=== PATIENT | female | born 1960 ===

== ENCOUNTER 2017-01-14 17:39 | Emergency (ER) | payer MEDICAID, OTHER ==
[2017-01-14 17:51] VITALS: BMI 27.3
[2017-01-14] MEDS ORDERED: DiphenhydrAMINE 50 mg/ml Inj ONE (18:03)
[2017-01-14] MEDS ORDERED: Sodium Chloride 0.9% 1,000 ML IV ONE (18:04)
[2017-01-14] MEDS ORDERED: DiphenhydrAMINE 50 mg/ml Inj IVP STA (18:08)
--- NOTE | 2017-01-14 18:09 | C.PDOC ---
History Of Present Illness 56 year old female presents to the ED with complaints of shortness of breath and wheezing that has been worsening over the course of one week with upper lip swelling. Patient has been nonconsistent with nebulizer breathing treatment at home. She also notes she has only had water and an orange at 6pm today to eat. Patient denies any chest pain, nausea, or vomiting. Time Seen by Provider: 01/14/17 18:04 Chief Complaint (Nursing): Allergic Reaction History Per: Patient History/Exam Limitations: no limitations Onset/Duration Of Symptoms: Days Current Symptoms Are (Timing): Worse Associated Symptoms: Swelling (lip swelling). denies: Skin Rash Home/EMS Treatment: Other (nebulizer breathing treatment, but pt is inconsistent with usage. ) Past Medical History Reviewed: Historical Data, Nursing Documentation, Vital Signs Vital Signs: Last Vital Signs Temp 98.1 F 01/14/17 20:06 Pulse 80 01/14/17 20:06 Resp 18 01/14/17 20:06 BP 163/93 H 01/14/17 20:06 Pulse Ox 99 01/14/17 23:41 - Medical History PMH: Rheumatoid Arthritis Family History: States: No Known Family Hx - Social History Hx Alcohol Use: No Hx Substance Use: No - Immunization History Hx Tetanus Toxoid Vaccination: No Hx Influenza Vaccination: No Hx Pneumococcal Vaccination: No Review Of Systems Constitutional: Negative for: Fever, Chills, Sweats Cardiovascular: Negative for: Chest Pain Respiratory: Positive for: Shortness of Breath, Wheezing Gastrointestinal: Negative for: Nausea, Vomiting, Abdominal Pain, Diarrhea Skin: Positive for: Other (lip swelling ). Negative for: Rash, Lesions Physical Exam - Physical Exam Appears: Non-toxic, No Acute Distress Skin: Warm, Dry Head: No Swelling Oral Mucosa: Moist, Other (normal oral pharyngeal ) Tongue: Normal Appearing, No Swelling Lips: Swelling (upper lip ) Throat: Normal, No Erythema, No Exudate, No Drooling Neck: Normal ROM, Supple Cardiovascular: Rhythm Regular Respiratory: No Rales, Rhonchi (scattered), No Stridor, Wheezing, Other ( moderate air movement ) Gastrointestinal/Abdominal: Soft, No Tenderness, No Distention, No Guarding, No Rebound Extremity: Normal ROM, No Tenderness Neurological/Psych: Oriented x3 ED Course And Treatment - Laboratory Results Result Diagrams: 01/14/17 18:53 01/14/17 18:53 Lab Interpretation: Normal (trop neg.) ECG: Interpreted By Me ECG Rhythm: Sinus Rhythm ECG Interpretation: Normal Rate From EC O2 Sat by Pulse Oximetry: 99 - Radiology CXR: Interpreted by Me CXR Interpretation: Yes: No Acute Disease Reevaluation Time: 19:40 Reassessment Condition: Improved (lungs much improved, only minor wheezing.) Critical Care Time - Critical Care Note Total Time (in mins): 90 Documented critical care: time excludes all time spent performing seperately billable procedures. Medical Decision Making Medical Decision Making: Asthma exacerbation worstening over past week- pt tending to her sick father so away from her neb machine. no aerochamber spacer w MDI Upper lip swelling may be allergic vs incidental Disposition Doctor Will See Patient In The: Office Counseled Patient/Family Regarding: Studies Performed, Diagnosis - Disposition Referrals: Paco Womack MD [Staff Provider] - Disposition: HOME/ ROUTINE Disposition Time: 19:42 Condition: GOOD Additional Instructions: Duoneb inhaled treatments with TWO ampules of Duoneb (liquids) every 3-4 hours as needed Prednisone 40 mg daily for 4 more days Pepcid 20 mg @ night to prevent stomach irritation from the prednisone Always use your albuterol puffer with the Aerochamber Spacer- makes it work more effectively. Follow-up with your doctor in 1-2 days for re-evaluation. Prescriptions: Spacer, Inhalation [Aerochamber] 1 dev IH DAILY #1 dev Prednisone [Deltasone] 40 mg PO DAILY #8 tablet Albuterol/Ipratropium [Duoneb 3 MG/3 Ml-0.5 MG/3 Ml 3 Ml] 6 ml IH Q4H #100 neb Instructions: Asthma (ED), Urticaria (ED), General Allergic Reaction (ED) - Clinical Impression Clinical Impression: Acute allergic reaction, Exacerbation of asthma - Scribe Statement The provider has reviewed the documentation as recorded by the Scribe Areli Nicolas All medical record entries made by the Scribe were at my direction and personally dictated by me. I have reviewed the chart and agree that the record accurately reflects my personal performance of the history, physical exam, medical decision making, and the department course for this patient. I have also personally directed, reviewed, and agree with the discharge instructions and disposition.
[2017-01-14] MEDS ORDERED: Albuterol-Ipratrop 3 mg / 0.5 (3 ml) UD ONE (18:18)
--- NOTE | 2017-01-14 18:42 | RAD ---
PROCEDURE: CHEST RADIOGRAPH, 1 VIEW HISTORY: Shortness of breath COMPARISON: None available. FINDINGS: LUNGS: The lungs are well inflated and clear. PLEURA: No pneumothorax or pleural fluid seen. CARDIOVASCULAR: Normal. OSSEOUS STRUCTURES: No significant abnormalities. VISUALIZED UPPER ABDOMEN: Normal. OTHER FINDINGS: None. IMPRESSION: No active pulmonary disease.
[2017-01-14] MEDS ORDERED: Albuterol-Ipratrop 3 mg / 0.5 (3 ml) UD INH STA (18:45)
[2017-01-14 19:01] LABS: BASO % 0.7 % (0.0-2.0); EOS # 0.2 K/uL (0.0-0.7); EOS % 2.4 % (0.0-4.0); LYMPH # 3.8 K/uL (1.0-4.3); LYMPH % 50.3 % (20.0-40.0); MEAN CELL VOLUME 85.9 fL (81.0-99.0); MEAN CORPUSCULAR HEMOGLOBIN 27.1 pg (27.0-31.0); MEAN CORPUSCULAR HGB CONC 31.5 g/dL (33.0-37.0); MEAN PLATELET VOLUME 7.5 fL (7.2-11.7); MONO # 0.5 K/uL (0.0-0.8); MONO % 6.7 % (0.0-10.0); WHITE BLOOD COUNT 7.6 K/uL (4.8-10.8)
[2017-01-14 19:09] LABS: CHLORIDE 105 mmol/L (98-107); POTASSIUM 3.7 mmol/L (3.6-5.2); SODIUM 140 mmol/L (132-148)
[2017-01-14 19:12] LABS: ALB/GLOB RATIO 1.1 (1.0-2.1); ALKALINE PHOSPHATASE 96 U/L (38-126); ALT/SGPT 20 U/L (9-52); AST/SGOT 24 U/L (14-36); BILIRUBIN,TOTAL 0.3 mg/dL (0.2-1.3); BLOOD UREA NITROGEN 15 mg/dL (7-17); CALCIUM 8.1 mg/dl (8.6-10.4); CARBON DIOXIDE 24 mmol/L (22-30); GFR AFRICAN-AMERICAN > 60; GLUCOSE,RANDOM 96 mg/dL (65-105); TOTAL PROTEIN 7.6 g/dL (6.3-8.3)
[2017-01-14 20:07] VITALS: BP 163/93; PULSE 80; RESP 18; TEMP 98.1
[2017-01-14 23:37] VITALS: O2SAT 99
--- NOTE | 2017-01-17 12:03 | CARD ---
APPROVED REPORT EKG Measurement Heart [id number] <Conclusion> Normal sinus rhythm Moderate voltage criteria for LVH, may be normal variant Borderline ECG
== END 2017-01-14 20:09 | disposition home or self-care (01) ==
LOC: C.ER 17:39
DX: J45.901 Unspecified asthma with (acute) exacerbation (principal); T78.40XA Allergy, unspecified, initial encounter; X58.XXXA Exposure to other specified factors, initial encounter
CPT/HCPCS: 71010; 80053; 83880; 84484; 85025; 93005; 94640; 96361; 96374; 96375; 99284; J1200; J2930; J7040

== ENCOUNTER 2017-01-25 20:33 | Emergency (ER) | payer OTHER ==
[2017-01-25 20:33] VITALS: BMI 27.3
[2017-01-25] MEDS ORDERED: Sodium Chloride 0.9% 1,000 ML IV ONE (20:42)
[2017-01-25] MEDS ORDERED: DiphenhydrAMINE 50 mg/ml Inj IVP STA (20:42)
[2017-01-25] MEDS ORDERED: Albuterol-Ipratrop 3 mg / 0.5 (3 ml) UD ONE (20:42)
[2017-01-25] MEDS ORDERED: Albuterol-Ipratrop 3 mg / 0.5 (3 ml) UD IH STA (20:43)
[2017-01-25] MEDS ORDERED: DiphenhydrAMINE 50 mg/ml Inj ONE (20:45)
--- NOTE | 2017-01-25 21:10 | C.PDOC ---
Time Seen by Provider: 01/25/17 20:42 Chief Complaint (Nursing): Allergic Reaction History Per: Patient, Family Onset/Duration Of Symptoms: Hrs (1) Current Symptoms Are (Timing): Still Present Context: Food Possible Cause: Food (Coconut) Associated Symptoms: Skin Rash, Dyspnea, Itching Home/EMS Treatment: Benadryl Severity: Moderate Additional History Per: Prior Records Past Medical History Reviewed: Historical Data, Nursing Documentation, Vital Signs Vital Signs: Last Vital Signs Temp 98.2 F 01/25/17 20:42 Pulse 67 01/25/17 20:42 Resp 20 01/25/17 20:42 BP 177/85 H 01/25/17 20:42 Pulse Ox 100 01/25/17 21:10 - Medical History PMH: Asthma, Rheumatoid Arthritis Surgical History: No Surg Hx Family History: States: Unknown Family Hx - Social History Hx Tobacco Use: No Hx Alcohol Use: No Hx Substance Use: No - Immunization History Hx Tetanus Toxoid Vaccination: No Hx Influenza Vaccination: No Hx Pneumococcal Vaccination: No Review Of Systems Except As Marked, All Systems Reviewed And Found Negative. Constitutional: Negative for: Fever, Weakness Cardiovascular: Negative for: Chest Pain Respiratory: Positive for: Wheezing Gastrointestinal: Negative for: Vomiting, Abdominal Pain Musculoskeletal: Negative for: Neck Pain Skin: Positive for: Rash Neurological: Negative for: Weakness, Numbness, Seizures, Altered Mental Status Physical Exam - Physical Exam Appears: In Acute Distress (mild) Skin: Warm, Dry, Rash (Urticaria) Head: Atraumatic, Normacephalic Eye(s): bilateral: PERRL, EOMI Oral Mucosa: Moist, No Drooling, No Trismus Throat: No Exudate, No Drooling, No Mass Neck: Normal ROM, Supple Cardiovascular: Rhythm Regular Respiratory: No Accessory Muscle Use, Wheezing Gastrointestinal/Abdominal: Soft, No Tenderness Extremity: Normal ROM, No Pedal Edema Neurological/Psych: Oriented x3, Normal Speech, Normal Motor, Normal Sensation ED Course And Treatment O2 Sat by Pulse Oximetry: 100 Pulse Ox Interpretation: Normal Progress Note: Pt feels much better and wants to go home now. Lungs clear. Pt is asymptomatic. Reevaluation Time: 22:10 Reassessment Condition: Improved Progress - Interventions Interventions:: Observation, Intravenous fluid - Medications Administered Intravenous: Antihistamine (H-1), Corticosteroid, H-2 joshua - Data Reviewed Data Reviewed: Old records - Patient Status Patient status: Completely improved - Critical Care Citical Care: Excluding Proc Time Critical Care Time: 45 minutes - Continuity of Care Discussed patient case with:: Patient, Family-HIPPA compliant, ED Nurse - Patient Plan Patient Plan: Discharge, F/U with PCP Disposition Counseled Patient/Family Regarding: Diagnosis, Need For Followup, Rx Given - Disposition Referrals: Paco Womack MD [Staff Provider] - Disposition: HOME/ ROUTINE Disposition Time: 22:10 Condition: IMPROVED Additional Instructions: Follow up with your doctor. Take Benadryl as needed. Return to the ER if you develop throat swelling, trouble breathing, worsening of symptoms or if you have any other concerns. Prescriptions: Epinephrine [Epipen] 0.3 mg IJ ONCE PRN #1 auto.injct PRN Reason: Anaphylaxis predniSONE [predniSONE Tab] 2 mg PO DAILY #6 tab Instructions: Food Allergy (ED) - Clinical Impression Clinical Impression: Allergic reaction to food
[2017-01-25 22:30] VITALS: BP 176/92; PULSE 79; RESP 16; TEMP 98.4; O2SAT 99
== END 2017-01-25 22:30 | disposition home or self-care (01) ==
LOC: C.ER 20:33
DX: T78.1XXA Other adverse food reactions, not elsewhere classified, initial encounter (principal)
CPT/HCPCS: 96361; 96374; 96375; 99284; J1200; J2930; J7040

== ENCOUNTER 2018-05-05 20:51 | Emergency (ER) | payer MEDICAID ==
[2018-05-05 20:51] VITALS: BMI 27.3
[2018-05-05] MEDS ORDERED: Sodium Chloride 0.9% 1,000 ML IV ONE (22:21)
--- NOTE | 2018-05-05 22:21 | C.PDOC ---
History Of Present Illness 57 year old female presents to the emergency department with complaints of three to four hours of right upper quadrant abdominal pain. She reports some nausea with no vomiting, and qualifies her pain as sharp and stabbing with a severity of 5/10. Time Seen by Provider: 05/05/18 22:20 Chief Complaint (Nursing): Abdominal Pain History Per: Patient History/Exam Limitations: no limitations Onset/Duration Of Symptoms: Hrs (3-4) Current Symptoms Are (Timing): Still Present Severity: Moderate Pain Scale Rating Of: 5 Location Of Pain/Discomfort: RUQ Quality Of Discomfort: Sharp, Stabbing, "Pain" Associated Symptoms: Nausea. denies: Vomiting Past Medical History Reviewed: Historical Data, Nursing Documentation, Vital Signs Vital Signs: Last Vital Signs Temp 98.9 F 05/05/18 21:33 Pulse 93 H 05/05/18 21:33 Resp 18 05/05/18 21:33 BP 152/70 H 05/06/18 00:32 Pulse Ox 96 05/06/18 00:15 - Medical History PMH: Asthma, Depression, HTN, Hypothyroidism, Rheumatoid Arthritis Surgical History: No Surg Hx Family History: States: No Known Family Hx - Social History Hx Tobacco Use: No Hx Alcohol Use: No Hx Substance Use: No - Immunization History Hx Tetanus Toxoid Vaccination: No Hx Influenza Vaccination: No Hx Pneumococcal Vaccination: No Review Of Systems Gastrointestinal: Positive for: Nausea, Abdominal Pain (RUQ). Negative for: Vomiting (RUQ) Physical Exam - Physical Exam Appears: Non-toxic, No Acute Distress Skin: Warm, Dry Head: Normacephalic Eye(s): bilateral: Normal Inspection Oral Mucosa: Dry Neck: Trachea Midline, Supple Chest: Symmetrical, No Tenderness Cardiovascular: Rhythm Regular, No Murmur Respiratory: No Rales, No Rhonchi, No Wheezing Gastrointestinal/Abdominal: Soft, Tenderness (RUQ ), Distention, Guarding ( voluntary), No Rebound Extremity: Bilateral: Normal Color And Temperature Pulses: Left Dorsalis Pedis: Normal, Right Dorsalis Pedis: Normal Neurological/Psych: Oriented x3 ED Course And Treatment - Laboratory Results Result Diagrams: 05/05/18 22:39 05/05/18 22:39 ECG: Interpreted By Me, Viewed By Me ECG Rhythm: Sinus Rhythm (56), Nonspecific Changes (lvh) O2 Sat by Pulse Oximetry: 96 (RA) Pulse Ox Interpretation: Normal Progress Note: Plan: CT Abdomen and Pelvis IV Contrast. EKG. CMP. Lipase. CBC. PTT. Prothrombin Time. Morphine 2mg IVP. Pepcid 20mg IVP. NaCl IV Fluids. Toradol 30mg IVP. Zofran 4mg IVP. Urinalysis Reevaluation Time: 01:16 Reassessment Condition: Improved Medical Decision Making Medical Decision Making: Upon provider reevaluation patient is feeling better, is medically stable, and requires no further treatment in the ED at this time. Patient will be discharged home with Rx for flagyl and miralax . Counseling was provided and all questions were answered regarding diagnosis and need for follow up with dr garcia. There is agreement to discharge plan. Return if symptoms persist or worsen. Disposition Counseled Patient/Family Regarding: Studies Performed, Diagnosis, Need For Followup, Rx Given - Disposition Referrals: Shaik Garcia MD [Staff Provider] - Disposition: HOME/ ROUTINE Disposition Time: 22:21 Condition: FAIR Additional Instructions: Please return if symptoms recur Prescriptions: Metronidazole [Flagyl] 500 mg PO TID #21 tablet Polyethylene Glycol 3350 [Miralax] 17 gm PO DAILY #270 ml Instructions: Acute Abdomen (Belly Pain), Adult (DC), Gallstones, Colic (DC), Constipation, Adult (DC) Forms: [facility] (Upper Sorbian) - Clinical Impression Clinical Impression: Abdominal pain, Biliary colic, Constipation - Scribe Statement The provider has reviewed the documentation as recorded by the Scribe (Lazaro Lugo) Provider Attestation: All medical record entries made by the Scribe were at my direction and personally dictated by me. I have reviewed the chart and agree that the record accurately reflects my personal performance of the history, physical exam, medical decision making, and the department course for this patient. I have also personally directed, reviewed, and agree with the discharge instructions and disposition.
[2018-05-05 22:48] LABS: BASO # 0.1 K/uL (0.0-0.2); BASO % 1.3 % (0.0-2.0); EOS # 0.3 K/uL (0.0-0.7); EOS % 3.2 % (0.0-4.0); HEMOGLOBIN 11.2 g/dL (11.0-16.0); LYMPH % 48.9 % (20.0-40.0); MEAN CELL VOLUME 83.1 fL (81.0-99.0); MEAN CORPUSCULAR HEMOGLOBIN 27.7 pg (27.0-31.0); MEAN CORPUSCULAR HGB CONC 33.3 g/dL (33.0-37.0); MEAN PLATELET VOLUME 7.6 fL (7.2-11.7); MONO # 0.5 K/uL (0.0-0.8); MONO % 5.9 % (0.0-10.0); NEUT # 3.3 K/uL (1.8-7.0); NEUT % 40.7 % (50.0-75.0); NRBC % 0.1 % (0.0-2.0); RBC 4.06 Mil/uL (3.80-5.20); RED CELL DISTRIBUTION WIDTH 14.9 % (11.5-14.5); WHITE BLOOD COUNT 8.2 K/uL (4.8-10.8)
[2018-05-05 22:56] LABS: CALCIUM 9.2 mg/dl (8.6-10.4); GFR AFRICAN-AMERICAN > 60; GFR NON-AFRICAN AMERICAN > 60; LIPASE 136 U/L (23-300)
[2018-05-05 23:03] LABS: SQUAMOUS EPITHIAL 4 /hpf (0-5); URINE BACTERIA OCC (<OCC); URINE BILIRUBIN NEGATIVE (NEGATIVE); URINE BLOOD NEGATIVE (NEGATIVE); URINE CLARITY Clear (Clear); URINE COLOR Yellow (YELLOW); URINE GLUCOSE (UA) NORMAL (Normal); URINE LEUKOCYTE ESTERASE 1+ Leu/uL (Negative); URINE PROTEIN NEGATIVE (NEGATIVE)
[2018-05-05 23:03] LABS: ALB/GLOB RATIO 1.1 (1.0-2.1); ALBUMIN 4.5 g/dL (3.5-5.0); ALT/SGPT 19 U/L (9-52); AST/SGOT 39 U/L (14-36); BLOOD UREA NITROGEN 15 mg/dL (7-17)
[2018-05-05 23:05] LABS: INR 0.9; PROTHROMBIN TIME 9.9 SECONDS (9.7-12.2)
[2018-05-05] MEDS ORDERED: Iohexol 350mg/ml 100 ML ONE (23:19)
[2018-05-06 01:48] VITALS: BP 144/77; PULSE 61; RESP 20; TEMP 98.3; O2SAT 97
--- NOTE | 2018-05-06 18:05 | CT ---
Date of service: 05/05/2018 PROCEDURE: CT Abdomen and Pelvis without intravenous contrast HISTORY: abd pain COMPARISON: None. TECHNIQUE: Axial and reformatted coronal and sagittal CT images of the abdomen and pelvis were obtained without IV or oral contrast administration.. Contrast dose: 0 Radiation dose: Total exam DLP = 534.56 mGy-cm. This CT exam was performed using one or more of the following dose reduction techniques: Automated exposure control, adjustment of the mA and/or kV according to patient size, and/or use of iterative reconstruction technique. FINDINGS: LOWER THORAX: Mild dependent atelectasis noted. LIVER: Unremarkable. No gross lesion or ductal dilatation. GALLBLADDER AND BILE DUCTS: Distended gallbladder without definite CT evidence of acute cholecystitis. PANCREAS: Unremarkable. No gross lesion or ductal dilatation. SPLEEN: Unremarkable. ADRENALS: Unremarkable. No mass. KIDNEYS AND URETERS: No evidence of nephrolithiasis or hydronephrosis. VASCULATURE: Unremarkable. No aortic aneurysm. BOWEL: Mild constipation is noted. Colonic diverticulosis are seen without evidence of diverticulitis. No evidence of high-grade bowel obstruction. APPENDIX: Unremarkable. Normal appendix. PERITONEUM: Unremarkable. No free fluid. No free air. LYMPH NODES: Unremarkable. No enlarged lymph nodes. BLADDER: Unremarkable. REPRODUCTIVE: Unremarkable. BONES: No acute fracture. OTHER FINDINGS: None. IMPRESSION: Distended gallbladder without evidence of acute cholecystitis. Colonic diverticulosis without evidence of diverticulitis. Mild constipation. Preliminary report was submitted by [facility].
== END 2018-05-06 02:07 | disposition home or self-care (01) ==
LOC: C.ER 20:51
DX: R10.11 Right upper quadrant pain (principal); K59.00 Constipation, unspecified; K80.50 Calculus of bile duct without cholangitis or cholecystitis without obstruction; I10 Essential (primary) hypertension; E03.9 Hypothyroidism, unspecified; M06.9 Rheumatoid arthritis, unspecified
CPT/HCPCS: 74176; 80053; 81001; 83690; 85025; 85610; 85730; 96374; 96375; 99285; J1885; J2270; J2405; J7030

== ENCOUNTER 2018-08-22 18:31 | Emergency (ER) | payer MEDICAID, OTHER ==
[2018-08-22 18:32] VITALS: BMI 27.3
[2018-08-22] MEDS ORDERED: Sodium Chloride 0.9% 1,000 ML IV ONE (18:55)
[2018-08-22] MEDS ORDERED: Albuterol-Ipratrop 3 mg / 0.5 (3 ml) UD IH STA (18:57)
[2018-08-22] MEDS ORDERED: Albuterol-Ipratrop 3 mg / 0.5 (3 ml) UD ONE ×2 (18:58→19:16)
[2018-08-22] MEDS ORDERED: Albuterol-Ipratrop 3 mg / 0.5 (3 ml) UD INH STA ×2 (19:10→19:11)
[2018-08-22 19:19] LABS: BASO % 1.5 % (0.0-2.0); EOS # 0.1 K/uL (0.0-0.7); EOS % 4.2 % (0.0-4.0); HEMOGLOBIN 11.3 g/dL (11.0-16.0); LYMPH # 1.4 K/uL (1.0-4.3); LYMPH % 46.1 % (20.0-40.0); MEAN CELL VOLUME 82.4 fL (81.0-99.0); MEAN CORPUSCULAR HEMOGLOBIN 26.5 pg (27.0-31.0); MEAN CORPUSCULAR HGB CONC 32.2 g/dL (33.0-37.0); MONO # 0.4 K/uL (0.0-0.8); MONO % 13.7 % (0.0-10.0); NEUT # 1.1 K/uL (1.8-7.0); NEUT % 34.5 % (50.0-75.0); NRBC % 0.1 % (0.0-2.0); RBC 4.27 Mil/uL (3.80-5.20); RED CELL DISTRIBUTION WIDTH 15.7 % (11.5-14.5)
[2018-08-22 19:24] LABS: WHITE BLOOD COUNT 3.1 K/uL (4.8-10.8)
[2018-08-22 19:31] LABS: BLOOD UREA NITROGEN 11 mg/dL (7-17); CALCIUM 8.7 mg/dl (8.6-10.4); GFR NON-AFRICAN AMERICAN > 60
[2018-08-22 20:05] LABS: SQUAMOUS EPITHIAL 4 /hpf (0-5); URINE BACTERIA RARE (<OCC); URINE BILIRUBIN NEGATIVE (NEGATIVE); URINE BLOOD NEGATIVE (NEGATIVE); URINE CLARITY Hazy (Clear); URINE COLOR Yellow (YELLOW); URINE GLUCOSE (UA) NORMAL (Normal); URINE LEUKOCYTE ESTERASE NEG Leu/uL (Negative); URINE PROTEIN NEGATIVE (NEGATIVE); URINE UROBILINOGEN NORMAL mg/dL (0.2-1.0)
--- NOTE | 2018-08-22 20:06 | C.PDOC ---
History Of Present Illness 57 yo female w/PMHx of COPD comes in for evaluation of cold sx for past month. Pt reports, developed nasal congestion, runny nose, productive cough with clear sputum month ago, was seen by PMD, received Rx: Z-pack, Medrol-pack, cough syrup with minimal improvement in sx. Pt reports, week ago, developed dry cough again with some chest tightness with cough. Otherwise, pt denies fever, chills, drooling, dysphagia, neck pain, CP, palpitation, diaphoreiss, dyspnea, abd. pain, V/D, back pain, UTI sx, denies recent travel or known sick contact. Time Seen by Provider: 08/22/18 18:50 Chief Complaint (Nursing): Flu-like Symptoms History Per: Patient Onset/Duration Of Symptoms: Gradual Past Medical History Reviewed: Historical Data, Nursing Documentation, Vital Signs Vital Signs: Last Vital Signs Temp 98.3 F 08/22/18 18:41 Pulse 76 08/22/18 18:41 Resp 18 08/22/18 18:41 BP 138/93 H 08/22/18 18:41 Pulse Ox 95 08/22/18 18:41 - Medical History PMH: Asthma, Depression, HTN, Hypothyroidism, Rheumatoid Arthritis Family History: States: Unknown Family Hx - Social History Hx Tobacco Use: Yes (quit 3 yrs ago) Hx Alcohol Use: No Hx Substance Use: No - Immunization History Hx Tetanus Toxoid Vaccination: No Hx Influenza Vaccination: No Hx Pneumococcal Vaccination: No Review Of Systems Except As Marked, All Systems Reviewed And Found Negative. Constitutional: Positive for: Malaise Eyes: Negative for: Vision Change ENT: Positive for: Nose Discharge, Nose Congestion, Throat Pain Cardiovascular: Negative for: Chest Pain, Palpitations, Edema, Light Headedness Respiratory: Positive for: Cough, Wheezing. Negative for: Shortness of Breath, Pleuritic Pain Gastrointestinal: Negative for: Nausea, Vomiting, Abdominal Pain, Diarrhea Genitourinary: Negative for: Dysuria Musculoskeletal: Negative for: Neck Pain, Back Pain Skin: Negative for: Rash Neurological: Negative for: Altered Mental Status, Headache, Dizziness Physical Exam - Physical Exam Appears: Well, Non-toxic, No Acute Distress Skin: Normal Color, Warm, Dry, No Rash Head: Normacephalic Eye(s): bilateral: PERRL Ear(s): Bilateral: Normal Nose: No Flaring, Discharge (B/L congestion with scant clear rhinorrhea) Oral Mucosa: Moist, No Drooling Throat: Erythema (mild B/L), No Exudate, No Drooling Neck: Trachea Midline, Supple Cardiovascular: Rhythm Regular, No Murmur, No JVD Respiratory: No Decreased Breath Sounds, No Accessory Muscle Use, No Stridor, Wheezing (diffuse exp wheezing B/L) Gastrointestinal/Abdominal: Soft, No Tenderness, No Distention, No Guarding Back: No CVA Tenderness Extremity: Normal ROM, No Pedal Edema, No Swelling Neurological/Psych: Oriented x3, Normal Speech ED Course And Treatment - Laboratory Results Result Diagrams: 08/22/18 19:16 08/22/18 19:16 Lab Interpretation: No Changes Compared To Prior Results O2 Sat by Pulse Oximetry: 95 Pulse Ox Interpretation: Normal - Radiology CXR: Interpreted by Me, Viewed By Me CXR Interpretation: Yes: No Acute Disease Progress Note: Pt was OBS in ED for 2 hours adn reports mod improvemnet ni sx. On re-eval, pt afebrile, hemodynamicaly stable. NOn-toxic. Tolerate PO well in ED. PuslEOx 98% RA. Neck: Supple, (-) JVD, (-) carotid bruits B/L. ENT: no acute findings. Lungs: CTA B/L, BS equal B/L. Abd: benign, (-) guaridng, (-) rebound. neuorlogicaly intact. CXR- normal study. Ashley muellerrk review and minerva ears baseline, no evidence of acute leukocytodsis or left shift, no dehydration. Troponin- negative. Pt has clinical findings c/w asthma exacerbation, acute bronchitis. Pt advised. ref. to f/u with PMD In 1-2 days for re-eavl. return if any worsening or new changes. Disposition Counseled Patient/Family Regarding: Studies Performed, Diagnosis, Need For Fol lowup, Rx Given - Disposition Referrals: Michael Ribeiro MD [Non-Staff] - Disposition: HOME/ ROUTINE Disposition Time: 20:20 Condition: STABLE Additional Instructions: Encourage fluids Take medication as prescribed Follow up with PMD, Pulmonology in2 -3 days for re-evaluation. Return if any worsening or new changes. Prescriptions: Doxycycline Hyclate [Doryx] 100 mg PO BID #14 cap Prednisone [Deltasone] 40 mg PO DAILY #6 tablet Promethazine/Codeine [Phenergan/Codeine Oral Syrup] 10 ml PO BID #100 ml Instructions: Asthma in Adults, Acute Bronchitis Forms: [facility] (Cuban) - Clinical Impression Clinical Impression: Bronchitis, Asthma
[2018-08-22] MEDS ORDERED: Promethazine/Cod 6.25mg-10mg/5ml Syr UD PO STA (20:19)
[2018-08-22] MEDS ORDERED: Promethazine/Cod 6.25mg-10mg/5ml Syr UD ONE (20:27)
[2018-08-22 20:40] VITALS: BP 131/83; PULSE 87; RESP 16; TEMP 98.4
[2018-08-22 22:01] VITALS: O2SAT 95
--- NOTE | 2018-08-23 08:29 | RAD ---
Date of service: 08/22/2018 HISTORY: Cough COMPARISON: Portable chest 01/14/2017. TECHNIQUE: Chest PA and lateral FINDINGS: LUNGS: Improved pulmonary volumes. No acute infiltrate bilaterally. PLEURA: No significant pleural effusion identified. No pneumothorax apparent. CARDIOVASCULAR: No aortic atherosclerotic calcification present. Normal cardiac size. No pulmonary vascular congestion. OSSEOUS STRUCTURES: No significant abnormalities. VISUALIZED UPPER ABDOMEN: Normal. OTHER FINDINGS: None. IMPRESSION: No interval acute cardiopulmonary disease appreciated.
== END 2018-08-22 21:20 | disposition home or self-care (01) ==
LOC: C.ER 18:31
DX: J45.909 Unspecified asthma, uncomplicated (principal)
CPT/HCPCS: 71046; 80048; 81001; 84484; 85025; 87040; 94640; 96361; 96374; 99283; J2930; J7030